=== PATIENT | female | born 1960 | race African-American/Black ===

== ENCOUNTER 2021-07-07 08:24 | Observation (INO) | payer OTHER ==
[~2021-07-07] VITALS: Ht 160 cm; Wt 49.9 kg
[2021-07-07 09:04] VITALS: BP 147/90
[2021-07-07] MEDS ORDERED: METOPROLOL TART25 MG PO (09:35)
[2021-07-07] MEDS ORDERED: BUSPIRONE HCL10 MG PO (09:35)
[2021-07-07] MEDS ORDERED: LEVOTHYROXINE75 MCG PO (09:35)
[2021-07-07] MEDS ORDERED: VITAMIN D350 MCG PO (09:35)
[2021-07-07] MEDS ORDERED: CRESTOR10 MG PO (09:35)
[2021-07-07] MEDS ORDERED: CELLCEPT500 MG PO (09:35)
[2021-07-07] MEDS ORDERED: calcium PO (09:35)
[2021-07-07] MEDS ORDERED: ASPIRIN81 MG PO (09:35)
[2021-07-07] MEDS ORDERED: ARIMIDEX1 MG PO (09:35)
[2021-07-07] MEDS ORDERED: PLAQUENIL200 MG PO (09:35)
[2021-07-07] MEDS ORDERED: BRILINTA90 MG PO (09:35)
[2021-07-07] MEDS ORDERED: METRONIDAZOLE500 MG PO (09:42)
[2021-07-07 10:01] VITALS: BP 147/90
[2021-07-07 10:11] LABS: CREATINE KINASE MB 1.7 ng/mL (0-5.0)
[2021-07-07] MEDS ORDERED: DOCUSATE SODIUM 100 MG CAP PO PRN (11:30)
[2021-07-07] MEDS ORDERED: HYDROCODONE/APAP 5MG-325MG TAB PO PRN (11:30)
[2021-07-07] MEDS ORDERED: DIPHENHYDRAMINE HCL 25 MG CAP PO PRN (11:30)
[2021-07-07] MEDS ORDERED: ONDANSETRON HCL INJ 2MG/ML 2ML 2 MG/ML VIAL IV PRN (11:30)
[2021-07-07] MEDS ORDERED: DEXTROSE 50% SYRINGE 50 ML IV PRN (11:30)
[2021-07-07] MEDS ORDERED: HYDRALAZINE HCL 20 MG/ML VIAL IV PRN (11:30)
[2021-07-07] MEDS ORDERED: POTASSIUM CHLORIDE 20 MEQ TAB CR PO PRN (11:30)
[2021-07-07] MEDS ORDERED: ALBUTEROL/IPRATROPIUM 3 ML NEB NEB PRN (11:30)
[2021-07-07] MEDS ORDERED: BENZONATATE 100 MG CAP PO PRN (11:30)
[2021-07-07] MEDS ORDERED: ACETAMINOPHEN 325 MG TAB PO PRN (11:30)
[2021-07-07] MEDS ORDERED: SIMETHICONE 80 MG CHEW PO PRN (11:30)
[2021-07-07] MEDS ORDERED: LIDOCAINE 4% PATCH TP PRN (11:30)
[2021-07-07] MEDS ORDERED: MELATONIN 5 MG TABLET PO PRN (11:30)
[2021-07-07 13:04] VITALS: BP 130/76
[2021-07-07 14:37] LABS: BASOPHILS % 0.7 % (0.0-1.0); EOSINOPHILS % 0.4 % (0.0-6.0); HEMATOCRIT 41.4 % (34.2-44.1); HEMOGLOBIN 12.9 g/dL (12.0-16.0); LYMPHOCYTES # (AUTO) 0.4 (1.0-3.2); LYMPHOCYTES % 15.4 % (18.0-39.1); MEAN CORPUSCULAR HEMOGLOBIN 27.7 pg (28-32); MEAN CORPUSCULAR HGB CONC 31.2 g/dL (31-35); MONOCYTES # (AUTO) 0.5 (0.2-0.8); MONOCYTES % 16.1 % (4.4-11.3); NEUTROPHILS # (AUTO) 1.9 (2.1-6.9); PLATELET COUNT 184 x10e3/uL (140-360); RED BLOOD COUNT 4.65 x10e6/uL (3.6-5.1); RED CELL DISTRIBUTION WIDTH 13.2 % (11.7-14.4)
[2021-07-07 14:51] LABS: CALCIUM 9.5 mg/dL (8.4-10.2); CREATININE, SERUM 0.74 mg/dL (0.57-1.11)
[2021-07-07 15:08] LABS: CREATINE KINASE MB 1.2 ng/mL (0-5.0)
[2021-07-07 16:42] VITALS: BP 136/88
[2021-07-07] MEDS ORDERED: ENOXAPARIN SOD INJ 40 MG/0.4 ML SYR SC SCH (17:00)
[2021-07-07] MEDS ORDERED: METOPROLOL TARTRATE 25 MG TAB PO SCH (17:00)
[2021-07-07] MEDS: TICAGRELOR 90 MG TABLET PO SCH (17:03)
[2021-07-07] MEDS: METOPROLOL TARTRATE 25 MG TAB PO SCH (17:03)
[2021-07-07] MEDS: BUSPIRONE HCL 10 MG TABLET PO SCH (17:03)
[2021-07-07] MEDS: MYCOPHENOLATE MOFETIL 250 MG CAP PO SCH (17:04)
[2021-07-07 20:07] VITALS: BP 101/75
[2021-07-07] MEDS: CRESTOR 10MG PO SCH (20:11)
[2021-07-07 21:00] VITALS: BP 101/75
[2021-07-07] MEDS ORDERED: SIMVASTATIN 40 MG TAB PO SCH (21:00)
[2021-07-07 21:14] LABS: CREATINE KINASE MB 1.3 ng/mL (0-5.0)
[2021-07-08] VITALS (23 sets, daily range): BP systolic 118–179; BP diastolic 63–94
[2021-07-08 05:22] LABS: BASOPHILS % 0.9 % (0.0-1.0); EOSINOPHILS % 0.4 % (0.0-6.0); HEMATOCRIT 44.2 % (34.2-44.1); HEMOGLOBIN 14.1 g/dL (12.0-16.0); LYMPHOCYTES # (AUTO) 0.7 (1.0-3.2); LYMPHOCYTES % 32.1 % (18.0-39.1); MEAN CORPUSCULAR HEMOGLOBIN 28.4 pg (28-32); MEAN CORPUSCULAR HGB CONC 31.9 g/dL (31-35); MEAN CORPUSCULAR VOLUME 88.9 fL (81-99); MONOCYTES # (AUTO) 0.3 (0.2-0.8); MONOCYTES % 11.6 % (4.4-11.3); NEUTROPHILS # (AUTO) 1.2 (2.1-6.9); NEUTROPHILS % 54.6 % (38.7-80.0); PLATELET COUNT 198 x10e3/uL (140-360); RED BLOOD COUNT 4.97 x10e6/uL (3.6-5.1); RED CELL DISTRIBUTION WIDTH 13.2 % (11.7-14.4)
[2021-07-08] MEDS: LEVOTHYROXINE SODIUM 75 MCG TAB PO SCH (05:30)
[2021-07-08] MEDS: MYCOPHENOLATE MOFETIL 250 MG CAP PO SCH ×2 (05:30→16:45)
[2021-07-08 06:05] LABS: ALBUMIN 3.7 g/dL (3.5-5.0); ALBUMIN/GLOBULIN RATIO 1.1 (0.8-2.0); ANION GAP 16.2 mmol/L (8-16); CALCIUM 9.9 mg/dL (8.4-10.2); CREATININE, SERUM 0.76 mg/dL (0.57-1.11); POTASSIUM 4.2 mmol/L (3.5-5.1)
[2021-07-08 06:21] LABS: CHOL/HDL RATIO 1.9 (3.0-3.6); MAGNESIUM 1.8 MG/DL (1.3-2.1); PHOSPHORUS 3.5 MG/DL (2.3-4.7)
[2021-07-08 06:43] LABS: THYROID STIMULATING HORMONE 1.554 uIU/mL (0.350-4.940)
[2021-07-08] MEDS: PANTOPRAZOLE SOD 40 MG TABEC PO SCH (07:30)
[2021-07-08] MEDS: HYDROXYCHLOROQUINE SULFATE 200 MG TAB PO SCH (09:00)
[2021-07-08] MEDS: TICAGRELOR 90 MG TABLET PO SCH ×2 (09:00→16:43)
[2021-07-08] MEDS: BUSPIRONE HCL 10 MG TABLET PO SCH ×2 (09:00→16:44)
[2021-07-08] MEDS ORDERED: METOPROLOL TARTRATE 25 MG TAB PO SCH (09:00)
[2021-07-08] MEDS: METOPROLOL TARTRATE 25 MG TAB PO SCH ×2 (09:00→16:45)
[2021-07-08] MEDS: ASPIRIN 81 MG ENTERIC COATED PO SCH (09:00)
[2021-07-08] MEDS ORDERED: FENTANYL CITRATE/PF 100MCG/2 ML INJ ONE (09:09)
[2021-07-08] MEDS ORDERED: SODIUM CHLORIDE 0.9% 1000ML 1,000 ML ONE (09:09)
[2021-07-08] MEDS ORDERED: MIDAZOLAM HCL 2 MG/2 ML VIAL ONE (09:09)
[2021-07-08] MEDS ORDERED: IOPAMIDOL 370 MG/ML 200 ML INFUS..BTL INJ ONE (09:09)
[2021-07-08] MEDS ORDERED: LIDOCAINE HCL 2% LOCAL 20 ML VIAL ONE (09:09)
[2021-07-08] MEDS ORDERED: HEPARIN SOD/SOD CHLORIDE 2,000 ML ONE (09:09)
[2021-07-08] MEDS ORDERED: BIVALRIUDIN 250 MG/VIAL VIAL IV ONE (09:59)
[2021-07-08] MEDS ORDERED: SODIUM CHLORIDE 0.9% 50ML 50 ML ONE (10:00)
[2021-07-08] MEDS: CRESTOR 10MG PO SCH (21:11)
[2021-07-09 00:10] VITALS: BP 110/76
[2021-07-09 05:11] VITALS: BP 140/95
[2021-07-09] MEDS: LEVOTHYROXINE SODIUM 75 MCG TAB PO SCH (05:39)
[2021-07-09] MEDS: PANTOPRAZOLE SOD 40 MG TABEC PO SCH (05:56)
[2021-07-09] MEDS: MYCOPHENOLATE MOFETIL 250 MG CAP PO SCH (05:56)
[2021-07-09 07:22] VITALS: BP 146/100
[2021-07-09] MEDS: BUSPIRONE HCL 10 MG TABLET PO SCH (07:26)
[2021-07-09] MEDS: TICAGRELOR 90 MG TABLET PO SCH (07:26)
[2021-07-09] MEDS: ASPIRIN 81 MG ENTERIC COATED PO SCH (07:26)
[2021-07-09] MEDS: METOPROLOL TARTRATE 25 MG TAB PO SCH (07:27)
[2021-07-09] MEDS: HYDROXYCHLOROQUINE SULFATE 200 MG TAB PO SCH (07:27)
[2021-07-09 07:28] VITALS: BP 146/100
[2021-07-09 11:23] VITALS: BP_SYST 138; BP_SYST 146; BP_DIAS 100; BP_DIAS 91
[2021-07-09] MEDS ORDERED: ONDANSETRON HCL 4 MG ORAL DISINTEGRATING TAB PO PRN (11:30)
== END 2021-07-09 14:00 | disposition home or self-care (01) ==
LOC: MED/SURG 08:24 → INTOOBSV 08:24
PROVIDERS: ADMIT Internal Medicine; ATTEND Internal Medicine
DX: I25.110 Atherosclerotic heart disease of native coronary artery with unstable angina pectoris (principal); I25.10 Atherosclerotic heart disease of native coronary artery without angina pectoris; Z95.5 Presence of coronary angioplasty implant and graft; I10 Essential (primary) hypertension; M32.9 Systemic lupus erythematosus, unspecified; E78.5 Hyperlipidemia, unspecified; Z88.8 Allergy status to other drugs, medicaments and biological substances; Z82.49 Family history of ischemic heart disease and other diseases of the circulatory system; Z83.3 Family history of diabetes mellitus; F32.9 Major depressive disorder, single episode, unspecified; M06.9 Rheumatoid arthritis, unspecified; I25.82 Chronic total occlusion of coronary artery
CPT/HCPCS: 36415 ×2; 71045; 80048; 80053; 80061; 82550; 82553; 83036; 83735; 84100; 84443; 84484; 85025 ×2; 92943; 93041; 93306; 93458; C1725; C1766 ×2; C1769 ×3; C1887; G0378 ×3; J0583; J1650; J2001; J2250; J3010; J7030; J7517 ×3; Q9967; S0164; 99152; 99153